=== PATIENT | female | born 1970 | race Caucasian/White ===

== ENCOUNTER 2018-08-23 11:05 | Emergency (ER) | payer BC ==
[2018-08-23 11:53] VITALS: BP 113/61
--- NOTE | 2018-08-23 13:03 | UC ---
Back Pain HPI - HPI Summary HPI Summary: 48 yo female presents with low back pain. She tells me that yesterday she was lifting something heavy and felt a pull in her lower back. Had immediate pain that has persisted into today. Lying flat makes her pain worse, but sitting straight up improves her pain. She has been taking 600mg ibuprofen with good relief. Denies hx of back problems, radiation of pain, numbness, tingling, dysuria, saddle anesthesia, or loss of bowel/bladder control. - History of Current Complaint Chief Complaint: UCBackPain Stated Complaint: BACK PAIN Time Seen by Provider: 08/23/18 13:03 Hx Obtained From: Patient Hx Last Menstrual Period: 03/13/13 Onset/Duration: Sudden Onset Timing: Constant Severity Initially: Severe Severity Currently: Severe Pain Intensity: 7 Pain Scale Used: 0-10 Numeric - Allergies/Home Medications Allergies/Adverse Reactions: Allergies Allergy/AdvReac Type Severity Reaction Status Date / Time No Known Allergies Allergy Verified 08/23/18 11:53 Home Medications: Home Medications Cyclobenzaprine TAB* [Flexeril 10 MG TAB*] 10 mg PO 08/23/18 [History] Ibuprofen 600 mg PO 08/23/18 [History] PMH/Surg Hx/FS Hx/Imm Hx - Additional Past Medical History Additional PMH: None - Surgical History Surgical History: Yes Surgery Procedure, Year, and Place: FERTILITY RELATED SURGERYS 1999 - Family History Known Family History: Positive: None - Social History Occupation: Employed Full-time Lives: With Family Alcohol Use: Occasionally Substance Use Type: None Smoking Status (MU): Never Smoked Tobacco Review of Systems Constitutional: Negative Skin: Negative Respiratory: Negative Cardiovascular: Negative Neurovascular: Negative Musculoskeletal: Other: - LBP Neurological: Negative Psychological: Negative All Other Systems Reviewed And Are Negative: Yes Physical Exam - Summary Physical Exam Summary: GENERAL: NAD. WDWN. No pain distress. SKIN: No rashes, sores, lesions, or open wounds. NECK: Supple. FROM. Nontender. No lymphadenopathy. CHEST: CTAB. No r/r/w. No accessory muscle use. Breathing comfortably and in no distress. CV: RRR. Without m/r/g. Pulses intact. Cap refill <2seconds MSK: TTP over lumbar paraspinal muscles L>R. Pain with flexion and extension of spine. Positive SLR on LEFT for low back pain without radiation. Positive TRENT for back pain LEFT. Strength 5/5 B/L LEs including dorsiflexion and plantar flexion. FROM B/L LEs. No edema. NEURO: Alert. Sensations intact B/L LEs L3-S1. PSYCH: Age appropriate behavior. Triage Information Reviewed: Yes Vital Signs: Initial Vital Signs Temp 98.4 F 08/23/18 11:48 Pulse 59 08/23/18 11:48 Resp 18 08/23/18 11:48 BP 113/61 08/23/18 11:48 Pulse Ox 100 08/23/18 11:48 Vital Signs Reviewed: Yes Back Pain Course/Dx - Course Course Of Treatment: Pt declined XR today. Suspect muscle strain of lower back. She was given Toradol IM in the clinic. Will rx for physical therapy and flexeril. F/u with PCP if her symptoms do not improve. - Differential Dx/Diagnosis Provider Diagnoses: Low back strain Discharge - Sign-Out/Discharge Documenting (check all that apply): Patient Departure All imaging exams completed and their final reports reviewed: No Studies - Discharge Plan Condition: Stable Disposition: HOME Prescriptions: Cyclobenzaprine TAB* [Flexeril 10 MG TAB*] 10 mg PO TID PRN #15 tab PRN Reason: Pain Patient Education Materials: Low Back Strain (ED), Lower Back Exercises (ED) Forms: *Work Release Referrals: Maegan Tate NP [Primary Care Provider] - Additional Instructions: If you develop a fever, shortness of breath, chest pain, new or worsening symptoms - please call your PCP or go to the ED. 1) May continue to take ibuprofen 600mg every 6-8hours as needed for pain 2) Please follow up with Physical therapy for further treatment 3) If your symptoms do not improve - please follow up with your PCP - Billing Disposition and Condition Condition: STABLE Disposition: Home
[2018-08-23] MEDS ORDERED: Ketorolac INJ* 30 MG/ML 1 ML VIAL IM ONE (13:18)
== END 2018-08-23 13:35 | disposition home or self-care (01) ==
LOC: UCEAST 11:05
DX: S39.012A Strain of muscle, fascia and tendon of lower back, initial encounter (principal); X50.0XXA Overexertion from strenuous movement or load, initial encounter; Y93.89 Activity, other specified; Y92.9 Unspecified place or not applicable
CPT/HCPCS: 96372; 99212; G0463; J1885